=== PATIENT | male | born 1940 | race Caucasian/White ===

== ENCOUNTER 2020-12-31 09:45 | Inpatient (IN) | payer OTHER, MEDICARE ==
[~2020-12-31] VITALS: Ht 182.9 cm; Wt 98.2 kg
[2020-12-31 10:15] LABS: BASOPHILS ABSOLUTE AUTO 0.01 K/mm3 (0.00-0.23); BASOPHILS PERCENT AUTO 0 % (0-2); EOSINOPHILS PERCENT AUTO 0 % (0-6); Hematocrit 41.3 % (37.0-53.0); Hemoglobin 13.1 g/dL (13.5-17.5); IMMATURE GRAN ABSOLUTE AUTO 0.05 K/mm3 (0.00-0.10); IMMATURE GRAN PERCENT AUTO 1 % (0-1); LYMPHOCYTES ABSOLUTE AUTO 0.84 K/mm3 (0.84-5.20); LYMPHOCYTES PERCENT AUTO 24 % (21-46); MONOCYTES ABSOLUTE AUTO 0.33 K/mm3 (0.16-1.47); MONOCYTES PERCENT AUTO 10 % (4-13); Mean Corpuscular HGB 29.5 pg (26.0-34.0); Mean Corpuscular HGB Conc 31.7 g/dL (31.5-36.5); Mean Corpuscular Volume 93 fL (80-100); Mean Platelet Volume 10.4 fL (9.1-12.4); NEUTROPHILS ABSOLUTE AUTO 2.22 K/mm3 (1.96-9.15); NEUTROPHILS PERCENT AUTO 64 % (41-73); Platelet Count 212 K/mm3 (150-400); RDW Coefficient Variation 15.1 % (11.7-14.2); RDW Standard Deviation 51.8 fL (35.1-46.3); Red Blood Cell Count 4.44 M/mm3 (4.30-5.90); White Blood Cell Count 3.45 K/mm3 (4.00-11.30)
[2020-12-31 10:44] LABS: Alanine Aminotransfer (ALT/SGP 26 U/L (12-78); Albumin, Blood 3.5 g/dL (3.4-5.0); Albumin/Globulin Ratio 0.7 (0.8-1.8); Alk Phos 110 U/L (50-136); Anion Gap 9 mmol/L (6-16); Aspartate Aminotrans (AST/SGOT 28 U/L (12-37); Bilirubin, Total 0.6 mg/dL (0.1-1.0); Blood Urea Nitrogen 14 mg/dL (8-24); Bun/Creatinine Ratio 15.4 (12.0-20.0); CO2, Blood 23 mmol/L (21-32); Calcium, Blood 9.1 mg/dL (8.5-10.1); Chloride, Blood 104 mmol/L (98-108); Creatinine, Blood 0.91 mg/dL (0.60-1.20); Globulin, Blood 5.1 g/dL (2.2-4.0); Glomerular Filtration Rate >60 (60-); Glucose, Blood 82 mg/dL (70-99); Potassium, Blood 4.2 mmol/L (3.5-5.5); Sodium, Blood 136 mmol/L (136-145); Total Protein, Blood 8.6 g/dL (6.4-8.2); Troponin I <0.015 ng/mL (0.000-0.040)
--- NOTE | 2020-12-31 15:50 | NUR ---
ARRIVAL TO UNIT SBA TO TRANSFER TO HOSP BED. ALERT & ORIENTED. DENIES CP, SOB, BLURRED VISION, OR NUMB/TING. TELE PLACED, NSR.
[2020-12-31 18:38] LABS: Creatine Kinase MB 1.5 ng/mL (0.0-3.6)
--- NOTE | 2020-12-31 19:20 | NUR ---
OPENING NOTE RECEIVED BEDSIDE REPORT FROM RAD JOHNS AND ASSUMED CARE. PT IS PLEASANT, DENIES COMPLAINTS, STATES "I FEEL BETTER ALREADY". VSS, SEE ASSESSMENT FOR DETAILS. PLAN TO CONTINUE TRENDING CARDIAC ENZYMES AND STRESS TEST IN THE AM. SLEEP STUDY TONIGHT. NO ACUTE CONCERNS AT THIS TIME, WILL CONTINUE TO MONITOR AND WILL CONTINUE PLAN OF CARE.
[2021-01-01 02:11] LABS: Hematocrit 35.6 % (37.0-53.0); Hemoglobin 11.7 g/dL (13.5-17.5); Mean Corpuscular HGB 29.4 pg (26.0-34.0); Mean Corpuscular HGB Conc 32.9 g/dL (31.5-36.5); Mean Corpuscular Volume 89 fL (80-100); Mean Platelet Volume 10.5 fL (9.1-12.4); Platelet Count 176 K/mm3 (150-400); RDW Coefficient Variation 15.1 % (11.7-14.2); RDW Standard Deviation 50.1 fL (35.1-46.3); Red Blood Cell Count 3.98 M/mm3 (4.30-5.90)
[2021-01-01 02:28] LABS: Anion Gap 6 mmol/L (6-16); Blood Urea Nitrogen 16 mg/dL (8-24); Bun/Creatinine Ratio 17.6 (12.0-20.0); CO2, Blood 25 mmol/L (21-32); Calcium, Blood 8.4 mg/dL (8.5-10.1); Chloride, Blood 102 mmol/L (98-108); Cholesterol 79 mg/dL (50-200); Creatinine, Blood 0.91 mg/dL (0.60-1.20); Glomerular Filtration Rate >60 (60-); Glucose, Blood 104 mg/dL (70-99); Sodium, Blood 133 mmol/L (136-145); Triglycerides 47 mg/dL (30-160); Very Low Density Lipoprot Chol 9 mg/dL (6-32)
[2021-01-01 02:46] LABS: Creatine Kinase MB Index 0.9 (0.0-4.0)
[2021-01-01 02:50] LABS: Troponin I 0.795 ng/mL (0.000-0.040)
[2021-01-01 03:23] LABS: HDL Cholesterol 29 mg/dL (>39)
[2021-01-01 03:25] LABS: CHOL/HDL RATIO 2.7; LDL/HDL RATIO 1.4; Low Density Lipoprotein Chol 41 mg/dL (0-110)
--- NOTE | 2021-01-01 06:22 | NUR ---
SHIFT SUMMARY PT HAS BEEN RESTLESS THROUGH SHIFT. ONE EPISODE OF DYSPNEA, TREMORS, AND SENSE OF UNEASE. DENIES CHEST PAIN BUT STATES "THIS IS EXACTLY WHAT I FELT LIKE WHEN I TOOK 3 NITRO AND IT HELPED". PROCEEDED WITH NITRO SL X 3 WITH GOOD RELIEF. TROPONINS CONTINUE TO TREND UPWARD, NO CHANGES ON TELE, PT IS SR WITH PVC'S. NO ACUTE CHANGES, PLAN IS TO PROCEED WITH STRESS TEST THIS AM. WILL PROVIDE REPORT AT THE BEDSIDE TO ONCOMING SHIFT.
[2021-01-01 11:13] LABS: International Normalized Ratio 1.11; Prothrombin Time Results 11.9 Sec (9.7-11.5)
--- NOTE | 2021-01-01 11:14 | NUR ---
UPDATE PHYSICIAN NOTIFIED THIS RN THAT D/T TROPONIN TRENDING UP, CARDIOLOGY WAS CONSULTED. PT BEGAN TO HAVE CP AT 3/10. NITRO GIVEN, PT REPORTE RELIEF PAIN NOW AT 210. CARDIOLOGY AWARE. PT TO GO TO SALES REPRESENTATIVES FOR [employer], CONSENT SIGNED AT BEDSIDE. PT'S TO BRING IN COVID VACCINATION RECORD. CARDIOLOGY AWARE THAT PT HAD BREAKFAST THIS AM.
--- NOTE | 2021-01-01 12:06 | NUR ---
PT TAKEN TO CHOPPED STRAND OPERATOR FOR PROCEDURE
--- NOTE | 2021-01-01 15:53 | NUR ---
Patient is sitting up in bed and alert. PAtient talks about the events that led to his hospitalization and the procedure that was done today. He then talks at length about his Buddhism jessika, the interesting circumstances that led to he and his finding each other and their 10 yr marriage (both of them had a spouse ). I reinforce helpful attitudes and practices and provided therapeutic listening and a calming presence. I will continue to remain available to patient and family.
--- NOTE | 2021-01-01 17:03 | NUR ---
SHIFT SUMMARY PT ALERT AND ORIETNED X 4. HR STABLE. BP STABLE. PT REPORTS CP AT TIMES PRIOR TO GOING TO HC. PT GIVEN NITRO, PT REPORTS RELIEF. PT TO LEASING MACHINE TENDER INSTEAD OF HAVING STRESS TEST D/T ACTIVE CP AND INCREASE IN TROP. SEE NOTES. PT REPORTS NO CP AFTER GOING TO LEASING MACHINE TENDER. VS STABLE. TR BAND IN PLACE AT THIS TIME. SITE WNL. PULSES STRONG. SENSATION INTACT IN FINGERS. PT ABLE TO TURN SELF IN BED. ARM BOARD IN PLACE.OXYGEN SATURATION MAINTAINED ABOVE 92% ON RA. WILL CONT TO MONITOR UNTIL REPORT GIVEN TO NIGHTSHIFT RN.
[2021-01-02 05:32] LABS: BASOPHILS PERCENT AUTO 0 % (0-2); EOSINOPHILS PERCENT AUTO 0 % (0-6); Hematocrit 36.3 % (37.0-53.0); Hemoglobin 11.7 g/dL (13.5-17.5); Mean Corpuscular HGB 29.5 pg (26.0-34.0); Mean Corpuscular HGB Conc 32.2 g/dL (31.5-36.5); Mean Corpuscular Volume 92 fL (80-100); Mean Platelet Volume 10.8 fL (9.1-12.4); Platelet Count 150 K/mm3 (150-400); RDW Coefficient Variation 15.5 % (11.7-14.2); RDW Standard Deviation 51.1 fL (35.1-46.3); Red Blood Cell Count 3.96 M/mm3 (4.30-5.90)
[2021-01-02 05:49] LABS: IMMATURE GRAN ABSOLUTE AUTO 0.04 K/mm3 (0.00-0.10); IMMATURE GRAN PERCENT AUTO 1 % (0-1); LYMPHOCYTES ABSOLUTE AUTO 0.72 K/mm3 (0.84-5.20); LYMPHOCYTES PERCENT AUTO 12 % (21-46); MONOCYTES ABSOLUTE AUTO 3.62 K/mm3 (0.16-1.47); MONOCYTES PERCENT AUTO 60 % (4-13); NEUTROPHILS ABSOLUTE AUTO 1.62 K/mm3 (1.96-9.15); NEUTROPHILS PERCENT AUTO 27 % (41-73)
[2021-01-02 06:05] LABS: Anion Gap 4 mmol/L (6-16); Blood Urea Nitrogen 17 mg/dL (8-24); CO2, Blood 27 mmol/L (21-32); Calcium, Blood 8.3 mg/dL (8.5-10.1); Chloride, Blood 103 mmol/L (98-108); Creatinine, Blood 0.95 mg/dL (0.60-1.20); Glomerular Filtration Rate >60 (60-); Glucose, Blood 96 mg/dL (70-99); Potassium, Blood 3.9 mmol/L (3.5-5.5); Sodium, Blood 134 mmol/L (136-145)
[2021-01-02] MEDS ORDERED: ASPI81CH PO (11:13)
[2021-01-02] MEDS ORDERED: ATORVASTATIN CA80 M1 PO (11:14)
[2021-01-02] MEDS ORDERED: CLOP75 PO (11:15)
[2021-01-02] MEDS ORDERED: Lopressor 25 mg25 MG PO (11:17)
[2021-01-02] MEDS ORDERED: NITR.4SL SL (11:19)
[2021-01-02] MEDS ORDERED: PANT40 PO (11:20)
== END 2021-01-02 12:54 | disposition home or self-care (01) | DRG 247 ==
LOC: ER 09:45 → PCU 09:46 → ERHOLD 09:46 → PCU 15:43
PROVIDERS: Emergency Medicine; Internal Medicine; ADMIT Internal Medicine
PROC: 027034Z Dilation of Coronary Artery, One Artery with Drug-eluting Intraluminal Device, Percutaneous Approach (ICD-10-PCS; principal; 2021-01-01)
PROC: B2111ZZ Fluoroscopy of Multiple Coronary Arteries using Low Osmolar Contrast (ICD-10-PCS; 2021-01-01)
DX: I21.4 Non-ST elevation (NSTEMI) myocardial infarction (principal); I10 Essential (primary) hypertension; I49.3 Ventricular premature depolarization; K21.9 Gastro-esophageal reflux disease without esophagitis; I08.3 Combined rheumatic disorders of mitral, aortic and tricuspid valves; I77.811 Abdominal aortic ectasia; Z88.0 Allergy status to penicillin; I25.10 Atherosclerotic heart disease of native coronary artery without angina pectoris; N40.0 Benign prostatic hyperplasia without lower urinary tract symptoms; Z98.890 Other specified postprocedural states
CPT/HCPCS: 36415; 71045; 76937; 80048; 80053; 80061; 82550; 82553; 84484; 85025; 85027; 85347; 85610; 85730; 93005; 93010; 93306; 93458; 93571; 93572; 94762; 96372; 96374; 99152; 99153; 99285-25; A9270; C1725; C1769; C1874; C1887; C1894; C9113; C9600; G0378; J1644; J1650; J2250; J2405; J3010; J7030; J7050; Q9967

== ENCOUNTER 2021-02-15 09:44 | Emergency (ER) | payer OTHER ==
[~2021-02-15] VITALS: Ht 182.9 cm; Wt 95.2 kg
[~2021-02-15 09:44] MED LIST: ASPI81CH PO; ATORVASTATIN CA80 M1 PO; CLOP75 PO; Lopressor 25 mg25 MG PO; NITR.4SL SL; PANT40 PO
== END 2021-02-15 11:38 | disposition home or self-care (01) ==
LOC: ER 09:44
DX: S01.432A Puncture wound without foreign body of left cheek and temporomandibular area, initial encounter (principal); X58.XXXA Exposure to other specified factors, initial encounter; Z88.0 Allergy status to penicillin; Z79.82 Long term (current) use of aspirin; Z95.5 Presence of coronary angioplasty implant and graft
CPT/HCPCS: 99282-25; A9270

== ENCOUNTER 2022-02-28 06:25 | Day surgery (SDC) | payer OTHER ==
[~2022-02-28] VITALS: Ht 182.9 cm; Wt 90.9 kg
[~2022-02-28 06:25] MED LIST changes: +DOC250 PO; +ELIQUIS5 M2 PO; +FERSU300 PO; +THERA-D2000 UNIT PO; +VITAMIN C125 MG PO; +Vitamin B-12100 MCG PO
[2022-02-28] MEDS ORDERED: METO25ER PO (06:50)
[2022-02-28] MEDS ORDERED: FURO20 PO (06:50)
[2022-02-28] MEDS ORDERED: POTCHL20ER PO (06:51)
--- NOTE | 2022-02-28 08:35 | NUR ---
PT AWAKE AND CONVERSING APPROPRIATELY; DENIES PAIN POST PROCEDURE, VSS. PT'S AT BEDSIDE, ATTENTIVE.
--- NOTE | 2022-02-28 08:50 | NUR ---
PT DRESSED SELF WITHOUT ISSUE, IV REMOVED-CANNULA INTACT.
--- NOTE | 2022-02-28 08:57 | NUR ---
PT AND RECEIVED DISCHARGE INSTRUCTIONS, MED LIST AND AFTER CARE INSTRUCTIONS; VERBALIZED GOOD UNDERSTANDING. PT LEFT FACILITY VIA W/C, CONDITION STABLE.
== END 2022-02-28 22:54 | disposition home or self-care (01) ==
LOC: ORSCMMR 06:25 → MHTC 06:25 → ORSCMMR 06:26 → ORD 07:00 → ORSCMMR 07:00 → MHTC 22:54
DX: I34.0 Nonrheumatic mitral (valve) insufficiency (principal); I25.10 Atherosclerotic heart disease of native coronary artery without angina pectoris; I10 Essential (primary) hypertension; I25.2 Old myocardial infarction; I48.19 Other persistent atrial fibrillation; E78.5 Hyperlipidemia, unspecified; Z95.5 Presence of coronary angioplasty implant and graft; Z88.0 Allergy status to penicillin; Z79.01 Long term (current) use of anticoagulants; Z79.899 Other long term (current) drug therapy
CPT/HCPCS: A9270; J2704; J7030

== ENCOUNTER 2022-04-14 10:19 | Day surgery (SDC) | payer OTHER ==
[~2022-04-14] VITALS: Ht 182.9 cm; Wt 87.5 kg
[~2022-04-14 10:19] MED LIST changes: +FURO20 PO; +METO25ER PO; +POTCHL20ER PO
--- NOTE | 2022-04-14 12:03 | NUR ---
Ambulatory in Day Surgery. Patient confirms NPO status and agrees with scheduled surgery. Patient states colon prep results clear. Patient States Post-Procedure ride home has been arranged. Lungs clear T/O to Auscultation. Pre-Op teaching done. Pt verbalizes understanding.
--- NOTE | 2022-04-14 13:10 | NUR ---
04/14/22 1310 Demetri Cruz HISTORY, CHART, MEDICATIONS AND ALLERGIES REVIEWED BEFORE START OF PROCEDURE. PATIENT CONFIRMS NPO STATUS AND AGREES WITH SCHEDULED PROCEDURE. 3-LEAD EKG REVIEWED WITH PHYSICIAN PRIOR TO START OF PROCEDURE. MONITOR INTACT WITH CONTINUOUS PULSE OXIMETRY,CAPNOGRAPHY, 3-LEAD EKG, INTERMITTENT BP. SUPPLEMENTAL O2 TO BE TITRATED THROUGHOUT PROCEDURE TO MAINTAIN O2 SATURATION ABOVE 90%. PATIENT DETERMINED TO BE ASA APPROPRIATE FOR PROPOFOL SEDATION PRIOR TO START OF PROCEDURE BY DR. FISHER
--- NOTE | 2022-04-14 14:12 | NUR ---
TO STEP WITH RN VSS. PATIENT AWAKE AND TALKING TO AND RN
--- NOTE | 2022-04-14 14:32 | NUR ---
Discharge instructions reviewed with patient. Patient verbalizes understanding. Copy given to patient to take home. PT TOLERATED BLACK COFFEE WELL, UNDERSTANDING OF CLEAR LIQ DIET AND NPO AFTER MIDNIGHT FOR SURGERY IN AM. Discharged via wheelchair to private car for ride home.
[2022-04-19] MEDS ORDERED: HYDR1TAB94 PO (12:19)
== END 2022-04-14 14:37 | disposition home or self-care (01) ==
LOC: ORSCMMR 10:19 → ORD 12:00 → ORSCMMR 12:00
PROVIDERS: Surgery
PROC: 0DJD8ZZ Inspection of Lower Intestinal Tract, Via Natural or Artificial Opening Endoscopic (ICD-10-PCS; principal; 2022-04-14 12:00)
DX: K63.89 Other specified diseases of intestine (principal); R93.5 Abnormal findings on diagnostic imaging of other abdominal regions, including retroperitoneum; K57.30 Diverticulosis of large intestine without perforation or abscess without bleeding; D50.9 Iron deficiency anemia, unspecified; I25.10 Atherosclerotic heart disease of native coronary artery without angina pectoris; I10 Essential (primary) hypertension; Z86.718 Personal history of other venous thrombosis and embolism; I35.0 Nonrheumatic aortic (valve) stenosis; I25.2 Old myocardial infarction; Z79.899 Other long term (current) drug therapy
CPT/HCPCS: J2704; J7120

== ENCOUNTER 2023-01-29 11:42 | Inpatient (IN) | payer OTHER ==
[2023-01-29] VITALS (20 sets, daily range): BP systolic 41–139; BP diastolic 17–95
[~2023-01-29] VITALS: Ht 182.9 cm; Wt 79.4 kg
[~2023-01-29 11:42] MED LIST changes: +HYDR1TAB94 PO
[2023-01-29 12:08] LABS: BASOPHILS PERCENT AUTO 0 % (0-2); EOSINOPHILS PERCENT AUTO 0 % (0-6); Hematocrit 37.9 % (37.0-53.0); Hemoglobin 12.1 g/dL (13.5-17.5); IMMATURE GRAN ABSOLUTE AUTO 0.01 K/mm3 (0.00-0.10); IMMATURE GRAN PERCENT AUTO 0 % (0-1); LYMPHOCYTES PERCENT AUTO 39 % (21-46); MONOCYTES ABSOLUTE AUTO 0.41 K/mm3 (0.16-1.47); MONOCYTES PERCENT AUTO 8 % (4-13); Mean Corpuscular HGB 31.3 pg (26.0-34.0); Mean Corpuscular HGB Conc 31.9 g/dL (31.5-36.5); Mean Corpuscular Volume 98 fL (80-100); Mean Platelet Volume 11.8 fL (9.1-12.4); NEUTROPHILS ABSOLUTE AUTO 2.75 K/mm3 (1.96-9.15); NEUTROPHILS PERCENT AUTO 53 % (41-73); Platelet Count 184 K/mm3 (150-400); RDW Coefficient Variation 15.4 % (11.7-14.2); RDW Standard Deviation 55.2 fL (35.1-46.3); Red Blood Cell Count 3.87 M/mm3 (4.30-5.90); White Blood Cell Count 5.17 K/mm3 (4.00-11.30)
[2023-01-29 12:33] LABS: Albumin, Blood 3.6 g/dL (3.4-5.0); Albumin/Globulin Ratio 0.7 (0.8-1.8); Bilirubin, Total 1.4 mg/dL (0.1-1.0); Bun/Creatinine Ratio 15.8 (12.0-20.0); Calcium, Blood 9.1 mg/dL (8.5-10.1); Creatinine, Blood 1.46 mg/dL (0.60-1.20); Globulin, Blood 5.2 g/dL (2.2-4.0); Magnesium, Blood 1.5 mg/dL (1.6-2.4); Potassium, Blood 3.8 mmol/L (3.5-5.5); Total Protein, Blood 8.8 g/dL (6.4-8.2)
--- NOTE | 2023-01-29 15:17 | NUR ---
LEVOPHED DRIP INITIATED @ 3 MCG/MIN. VERBAL ORDER GIVEN FROM DR. HERNANDEZ TO INITIATE/OK TO INFUSE PERIPHERALLY. MAP TRENDING <60-65.
[2023-01-29 16:19] LABS: PCO2 Arterial 56.4 mmHg (35-45); PO2 Arterial 313 mmHg (80-100)
[2023-01-29 16:20] LABS: pH Blood Arterial > 6.80 (7.35-7.45)
--- NOTE | 2023-01-29 16:31 | NUR ---
Case Conference Note Received call from ANDREAS Puente and discussed case. Spouse in consultation room and may benefit from supportive visit. Pt having difficulty during surgery. Met with spouse Marbella and offered supportive visit. Marbella intermittently tearful and emotional support offered. Offered therapeutic listening as Marbella reports being to Pt for 12 years. She and Pt lost their previous spouses around the same time and mutual friends eventually assisted with introducing each other. Pt has 2 adult children and spouse has 2 adult children. Spouse has a daugher who lives in [place]. Rest of children live out of town. Listened as spouse expresses concerns regarding Pt's current prognosis. Continued therapeutic listening and validated concerns. Spouse reports needing some time alone and is agreeable for this RN to F/U at a later time. Palliative Care will remain available for supportive visits.
--- NOTE | 2023-01-29 17:35 | NUR ---
F/U supportive visit. Spoke with Dr Sharp and discussed case. Spouse in ICU waiting room. Offered therapeutic listening, emotional support, and validated cancerns. Allowed spouse Marbella to express fears. Marbella reports her daughter in [place] won't be able to make it to the hospital as she has health issues of her own. She reports another duaghter in [place] will come down tonight or tomorrow. Continued supportive visit. Spoke with Dr Headley, Primary RN Patricia, and discussed case. Palliative Care will remain available
--- NOTE | 2023-01-29 18:06 | NUR ---
PT ARRIVES WITH OR CREW TO ICU BED 13, PT IS UNRESPONSIVE, INTUBATED, ABDOMEN WITH CLEAN/DRY ABD THAT SAYS, "OPEN ABDOMEN" ACROSS THE DRESSING. PT HOOKED TO THE MONITOR, ART LINE READING IN THE LOW 50'S, LEVO AND VASO INFUSING PERIPH- ERALLY, PRESENT WANTS TO GET A CENTRAL LINE. PT IS VERY PALE, RIDING THE VENT, AC 16/500/5/60%. PIV IN LEFT FOREARM AND RIGHT A/C. HEART RATE AND RHYTHM VARIABLE 80-110'S. ART LINE MAP 45, SATS 91%. PVC'S OCC. LINE DAMP. BROUGHT TO THE BEDSIDE.
--- NOTE | 2023-01-29 18:13 | NUR ---
1MG EPINEPHRINE GIVEN IV PUSH PER ORDER, PHARM WORKING ON EPI DRIP. 1 AMP BICARB IV PUSH PER VERBAL ORDER. PT RESPONDING WITH MAP 83, BICARB GTT ORDERED.
[2023-01-29 18:21] LABS: Hematocrit 18.6 % (37.0-53.0); Mean Corpuscular HGB 31.9 pg (26.0-34.0); Mean Corpuscular HGB Conc 28.5 g/dL (31.5-36.5); Mean Platelet Volume 11.8 fL (9.1-12.4); NRBC ABSOLUTE 0.02 K/mm3 (0.00-0.02); NRBC Auto 0.2 /100 WBC (0.0-0.2); Platelet Count 87 K/mm3 (150-400); RDW Coefficient Variation 15.5 % (11.7-14.2); RDW Standard Deviation 62.4 fL (35.1-46.3); Red Blood Cell Count 1.66 M/mm3 (4.30-5.90); White Blood Cell Count 11.23 K/mm3 (4.00-11.30)
[2023-01-29 18:26] LABS: Mean Corpuscular Volume 112 fL (80-100)
[2023-01-29 18:28] LABS: Hemoglobin 5.3 g/dL (13.5-17.5)
[2023-01-29 18:34] LABS: International Normalized Ratio 1.77
[2023-01-29 18:52] LABS: BAND PERCENT MAN 3 % (0-8); BASOPHILS PERCENT MAN 0 % (0-2); EOSINOPHILS PERCENT MAN 0 % (0-6); LYMPHOCYTES ABSOLUTE MAN 5.27 K/mm3 (0.84-5.20); LYMPHOCYTES PERCENT MAN 47 % (21-46); MONOCYTES ABSOLUTE MAN 0.89 K/mm3 (0.16-1.47); MONOCYTES PERCENT MAN 8 % (4-13); MYELOCYTE ABSOLUTE MAN 0.22 K/mm3 (0.00-0.00); MYELOCYTE PERCENT MAN 2 % (0-0); NEUTROPHILS ABSOLUTE MAN 4.82 K/mm3 (1.96-9.15); SEG NEUTROPHILS PERCENT MAN 40 % (41-73); TOTAL CELLS COUNTED 100
[2023-01-29 19:15] LABS: Bilirubin, Total 0.7 mg/dL (0.1-1.0); Creatinine, Blood 1.5 mg/dL (0.60-1.20); Potassium, Blood 5.5 mmol/L (3.5-5.5)
[2023-01-29 19:16] LABS: Albumin, Blood 1.6 g/dL (3.4-5.0); Albumin/Globulin Ratio 0.7 (0.8-1.8); Globulin, Blood 2.3 g/dL (2.2-4.0); Total Protein, Blood 3.9 g/dL (6.4-8.2)
--- NOTE | 2023-01-29 19:33 | NUR ---
PT CONTINUES WITH CRITICAL STATUS, HE CONTINUES TO HAVE MAP IN THE 50'S. HE IS BEING TRANSFUSED 2 UNITS RAPID INFUSION, HE IS ON EPI, NOREPI, VASO, PHENYL, BICARB AND THE BLOOD. HE CONTINUES TO BE VERY PALE, URINE OUTPUT MINIMAL, LUNG SOUNDS AND HEART TONES QUIET, ABDOMEN REMAINS C/D/I. AT BEDSIDE, CONSENTED TO BLOOD TRANSFUSIONS. SHE HAS DENIED HAVING ANYONE CALLED TO COME IN TO BE WITH HER. EXPLAINED HOW GRAVE HIS CONDITION IS AT THIS TIME.
[2023-01-29 19:56] LABS: PCO2 Arterial 38.4 mmHg (35-45); PO2 Arterial 125 mmHg (80-100)
[2023-01-29 19:57] LABS: pH Blood Arterial 6.84 (7.35-7.45)
--- NOTE | 2023-01-29 20:00 | NUR ---
ASSUMED CARE AT 1900 PT IN CRITICAL CONDITION FROM OR. HE IS INTUBATED WITH VENT SETTINGS AC/VC 16/500/5/100%; RR 17; BLOODY SPUTUM FROM ETT AND ORAL CAVITY NOTED; ECO2 READING 15-18. AFIB NOTED WITH RATE IN 70-80'S. ART LINE TO LT WRIST CHALLENGING TO READ WITH DAMPENED PLETH BUT IS CORRELATING WITH NONIVASIVE BP; SBP 40-60; MAP 40-58; LEVOPHED, VASOPRESSING, ANGEL, AND EPI INFUSING (SEE FLOWSHEET FOR TITRATIONS); 2 UNITS OF PRBC BOLUSED IN RIGHT AT SHIFT CHANGE. NO RESPONSE TO PAINFUL STIMULI; PUPILS NOT REACTIVE AND 8MM DIALATED; NO GAG OR COUGH NOTED. IRWIN IN PLACE WITH VERY LITTLE OUTPUT; 10ML SENT FOR UA, NO URINE OUTPUT SINCE. MOTTLING NOTED TO BLE. WILL CONT TO MONITOR. PT AT BEDSIDE, APPROPRIATE.
[2023-01-29 20:40] LABS: Hematocrit 20.9 % (37.0-53.0); Hemoglobin 6.1 g/dL (13.5-17.5)
[2023-01-29 21:18] LABS: Source, Urine Foley catheter
--- NOTE | 2023-01-29 21:19 | NUR ---
UPDATE AN ADDITIONAL 2 UNITS OF PRBC ORDERED AND INFUSING PER DR EUBANKS.
[2023-01-29 21:32] LABS: Bilirubin, Urine Neg (Neg); Blood, Urine 5+ (Neg); Glucose Qualitative, Urine Neg (Neg); Ketones, Urine Neg (Neg); Leukocyte Esterase, Urine 1+ (Neg); Nitrite, Urine Pos (Neg); Protein, Urine 4+ (Neg); Urobilinogen, Urine NORM (Normal); pH, Urine 6.5 (5.0-8.0)
[2023-01-29 21:39] LABS: Amorphous Mod (0-Heavy); Appearance, Urine Hazy (Clear); Bacteria Few /hpf; Color, Urine Yellow (P-Yellow); Red Blood Cells, Urine TNTC /hpf (0-2); Squamous Epithelial Cells Not Seen /hpf (Few)
--- NOTE | 2023-01-29 21:39 | NUR ---
UPDATE FAMILY MEMBERS ARRIVED FROM [place]; APPROPRIATE WITH STAFF AND PT. DR EUBANKS AT BEDSIDE.
[2023-01-29 23:21] LABS: Hematocrit 18.9 % (37.0-53.0)
[2023-01-29 23:23] LABS: Hemoglobin 5.5 g/dL (13.5-17.5)
[2023-01-29 23:47] LABS: Albumin, Blood 0.8 g/dL (3.4-5.0); Albumin/Globulin Ratio 0.7 (0.8-1.8); Bilirubin, Total 0.4 mg/dL (0.1-1.0); Bun/Creatinine Ratio 15.8 (12.0-20.0); Calcium, Blood 6.4 mg/dL (8.5-10.1); Creatinine, Blood 1.46 mg/dL (0.60-1.20); Globulin, Blood 1.1 g/dL (2.2-4.0); Potassium, Blood 6.5 mmol/L (3.5-5.5)
[2023-01-30] VITALS: BP 62/43
[2023-01-30] LABS: Total Protein, Blood 1.9 g/dL (6.4-8.2)
[2023-01-30 00:30] VITALS: BP 60/43
--- NOTE | 2023-01-30 00:43 | NUR ---
UPDATE TO MD CALL TO DR HERNANDEZ, UPDATE GIVEN REGARDING PRESSORS, TRANSFUSION, BLEEDING AND MEDS GIVEN. NO NEW ORDERS. DR EUBANKS AT BEDSIDE.
[2023-01-30 00:48] LABS: Fibrinogen 53 mg/dL (170-430)
[2023-01-30 00:49] LABS: Prothrombin Time Results 39.1 Sec (9.7-11.5)
[2023-01-30 00:50] LABS: International Normalized Ratio 4.07
[2023-01-30 01:00] VITALS: BP 65/36
--- NOTE | 2023-01-30 01:07 | NUR ---
UPDATE AFTER 0 LABS WERE DRAWN, AN INCREASE IN BLOOD NOTED COMING OUT OF PT MOUTH. PT CLEANED UP AND NEW ABSORBANT PAD PLACED UNDER HEAD. BY [id number] THIS PAD WAS ALREADY SOILED AND SATURATED AGAIN. LAB RESULTS SHOWED A DROP IN HGB. MASS BLOOD TRANSFUSION PROTOCOL INITIATED PER DR EUBANKS. WITH THE OTHER LAB RESULTS COMING BACK, A BICARB PUSH GIVEN, D50 PUSH GIVEN, INSULIN PUSH GIVEN, AND CALCIUM GLUCONATE GTT STARTED. WHILE GIVING FFP, PT STARTED SHOWING SIGNS OF BLEEDING OUT OF HIS NOSE AND FROM ABD SITE. THE BLEEDING IS CONSISTANT AND ABSORBANT PAD CONT TO BE CHANGED EVERY 30 MIN. MOTTLING NOTED AROUND HAND AND EARS. DR EUBANKS AT BEDSIDE AND DISCUSSED CHANGE IN PT. HE IS NOW A LIMITED CODE, ONLY MEDS, DEFIB, AND INTUBATION NOW. PRESSORS MAXED OUT, SO FAR 6 UNITS OF PRBC INFUSED. 2 UNITS OF FFP INFUSED. CURRENTLY INFUSING 2 MORE UNITS OF FFP, AND AWAITING CRYO TO BE INFUSED.
[2023-01-30 01:30] VITALS: BP 53/24
--- NOTE | 2023-01-30 02:00 | NUR ---
UPDATE PT AND HER DAUGHTER MADE THE CHOICE TO SWITCH PT OVER TO COMFORT CARE AT 0144 AND TO TURN OFF PRESSORS. PRESSORS STOPPED AT 0146. PRN FENTANYL GIVEN DURING THIS TRANSITION.
--- NOTE | 2023-01-30 02:15 | NUR ---
ABDI PT AT 0210, VARIFIED WITH ADRIANA Panchal
== END 2023-01-30 02:10 | DRG 853 ==
LOC: ER 11:42 → ICUE 14:45
PROVIDERS: Internal Medicine Critical Care Medicine; Student in an Organized Health Care Education/Training Program; ADMIT Surgery
PROC: 0DBB0ZZ Excision of Ileum, Open Approach (ICD-10-PCS; 2023-01-29)
PROC: 0DS80ZZ Reposition Small Intestine, Open Approach (ICD-10-PCS; 2023-01-29)
PROC: 0DBU0ZZ Excision of Omentum, Open Approach (ICD-10-PCS; 2023-01-29)
PROC: 0BH17EZ Insertion of Endotracheal Airway into Trachea, Via Natural or Artificial Opening (ICD-10-PCS; 2023-01-29)
PROC: 3E033XZ Introduction of Vasopressor into Peripheral Vein, Percutaneous Approach (ICD-10-PCS; 2023-01-29)
PROC: 30233N1 Transfusion of Nonautologous Red Blood Cells into Peripheral Vein, Percutaneous Approach (ICD-10-PCS; 2023-01-29)
PROC: 02HV33Z Insertion of Infusion Device into Superior Vena Cava, Percutaneous Approach (ICD-10-PCS; 2023-01-29)
PROC: 0T9B70Z Drainage of Bladder with Drainage Device, Via Natural or Artificial Opening (ICD-10-PCS; 2023-01-29)
PROC: 4A133R1 Monitoring of Arterial Saturation, Peripheral, Percutaneous Approach (ICD-10-PCS; 2023-01-29)
PROC: 0D9670Z Drainage of Stomach with Drainage Device, Via Natural or Artificial Opening (ICD-10-PCS; 2023-01-29)
PROC: 5A12012 Performance of Cardiac Output, Single, Manual (ICD-10-PCS; 2023-01-29)
PROC: 03HY32Z Insertion of Monitoring Device into Upper Artery, Percutaneous Approach (ICD-10-PCS; 2023-01-29)
PROC: 4A133B1 Monitoring of Arterial Pressure, Peripheral, Percutaneous Approach (ICD-10-PCS; 2023-01-29)
PROC: 4A133J1 Monitoring of Arterial Pulse, Peripheral, Percutaneous Approach (ICD-10-PCS; 2023-01-29)
PROC: B548ZZA Ultrasonography of Superior Vena Cava, Guidance (ICD-10-PCS; 2023-01-29)
PROC: 5A1935Z Respiratory Ventilation, Less than 24 Consecutive Hours (ICD-10-PCS; principal; 2023-01-30)
DX: A41.9 Sepsis, unspecified organism (principal); K55.029 Acute infarction of small intestine, extent unspecified; K56.2 Volvulus; R65.21 Severe sepsis with septic shock; K55.9 Vascular disorder of intestine, unspecified; N17.9 Acute kidney failure, unspecified; E87.21 Acute metabolic acidosis; I46.8 Cardiac arrest due to other underlying condition; Z51.5 Encounter for palliative care; R57.8 Other shock; I48.91 Unspecified atrial fibrillation; D64.9 Anemia, unspecified; I25.10 Atherosclerotic heart disease of native coronary artery without angina pectoris; I25.2 Old myocardial infarction; E87.5 Hyperkalemia; N40.0 Benign prostatic hyperplasia without lower urinary tract symptoms; I10 Essential (primary) hypertension; K21.9 Gastro-esophageal reflux disease without esophagitis; E83.42 Hypomagnesemia; I27.20 Pulmonary hypertension, unspecified; Z88.0 Allergy status to penicillin; Z79.01 Long term (current) use of anticoagulants; Z79.891 Long term (current) use of opiate analgesic; Z79.899 Other long term (current) drug therapy; Z95.5 Presence of coronary angioplasty implant and graft; Z98.890 Other specified postprocedural states; Z86.718 Personal history of other venous thrombosis and embolism; Z85.038 Personal history of other malignant neoplasm of large intestine; Z90.89 Acquired absence of other organs
CPT/HCPCS: 36415; 36430; 71045; 71046; 71275; 74174; 80053; 81001; 82803; 83605; 83735; 83880; 84484; 85014; 85018; 85025; 85384; 85610; 85730; 86850; 86900; 86901; 86920; 86923; 87086; 88307; 93005; 93010; 94002; 96365-59; 96375-59; 99285-25; C1751; J0171; J0612; J0692; J1720; J1815; J1956; J2250; J2371; J2765; J3010; J3475; J7030; J7040; J7060; J7070; J7168; P9012; P9016; P9059; Q9967